=== PATIENT | female | born 1960 ===

== ENCOUNTER 2021-12-25 11:51 | Emergency (ER) | payer SELFPAY ==
[2021-12-25] MEDS ORDERED: Cyclobenzaprine 10 MG TAB ONE (13:46)
[2021-12-25] MEDS ORDERED: Acetaminophen 325 MG TAB ONE (13:46)
[2021-12-25] MEDS ORDERED: Ketorolac Tromethamine 30 MG/ML VIAL ONE (13:46)
== END 2021-12-25 14:12 | disposition home or self-care (01) ==
LOC: ERS 11:51
DX: M54.41 Lumbago with sciatica, right side (principal); Z79.899 Other long term (current) drug therapy
CPT/HCPCS: 96374; J1885